=== PATIENT | female | born 1985 | race Two or more races ===

== ENCOUNTER 2020-10-15 12:23 | Emergency (ER) | payer OTHER ==
[~2020-10-15] VITALS: Ht 170.2 cm; Wt 82.6 kg
--- NOTE | 2020-10-15 12:47 | NUR ---
ED Nurse Note: pt walked in from home with dog bite on her L thumb. pt reports that her friend's dog bit her at around 1200 today, she does not know if the dog has had it's vaccines. pt has a puncture wound to L thumb near the nail bed. bleeding is controlled, pt reports putting abx ointment over affected area
[2020-10-15 12:49] VITALS: BP 95/62
[2020-10-15] MEDS ORDERED: Augmentin 875mg Tab ORAL ONE (13:00)
[2020-10-15] MEDS ORDERED: Tetanus/Diptheria/Pertussis IM ONE (13:00)
[2020-10-15] MEDS ORDERED: AUGMENTIN 875-1 EAC1 ORAL (13:27)
[2020-10-15] MEDS ORDERED: Bacitracin Oint UD TOPIC ONE (13:30)
--- NOTE | 2020-10-15 13:32 | NUR ---
Note charly in EDM - 10/15/20 at 1346 by ALLYN ER DISCHARGE NOTE: Patient is cleared to be discharged per ERMD, wound was irrigated and dressed. pt is aox4, on room air, with stable vital signs. pt was given dc and prescription instructions, pt was able to verbalize understanding, pt id band and iv site removed without complications. pt is able to ambulate with steady gait. pt took all belongings, was provided with clothes and taxi ride back home.
[2020-10-15 13:33] VITALS: BP 95/62
--- NOTE | 2020-10-16 16:40 | Emergency Room Report ---
History of Present Illness General Chief Complaint: Animal Bite Source: Patient Present Illness HPI 34-year-old female presents to ED with dog bite. States that her friend's dog bit her on the left thumb today. Denies any pain. Tetanus is out of date. States that she does not know the dog's vaccination status however states that the dog appears well and does not appear rabid. States there was bleeding in itially but none at this time. Denies any other injuries. No other aggravating relieving factors. Denies any other associated symptoms Allergies: Coded Allergies: No Known Allergies (Unverified , 10/15/20) COVID-19 Screening Contact w/high risk pt: No Experienced COVID-19 symptoms?: No COVID-19 Testing performed [facility] [place]: No Patient History Past Medical History: none Past Surgical History: none Pertinent Family History: none Social History: Denies: smoking, alcohol use, drug use Now: No Immunizations: UTD Reviewed Nursing Documentation: PMH: Agreed; PSxH: Agreed Nursing Documentation-PMH Past Medical History: No Stated History Review of Systems All Other Systems: negative except mentioned in HPI Physical Exam Vital Signs Date Time Temp Pulse Resp B/P (MAP) Pulse Ox O2 Delivery O2 Flow Rate FiO2 10/15/20 12:28 97.7 63 17 95/62 (73) 99 Room Air Sp02 EP Interpretation: reviewed, normal General Appearance: no apparent distress, alert, GCS 15, non-toxic Head: normocephalic Eyes: bilateral eye normal inspection, bilateral eye PERRL ENT: normal ENT inspection Neck: normal inspection Respiratory: normal inspection Cardiovascular #1: normal inspection Gastrointestinal: normal inspection Rectal: deferred Genitourinary: no CVA tenderness Musculoskeletal: back normal, normal range of motion, gait/station normal, other - small abrasion to L thumb adjacent to nail bed. no active bleeding. no erythema/induration Neurologic: alert, motor strength/tone normal, oriented x3, sensory intact, responsive, speech normal Psychiatric: judgement/insight normal, memory normal, mood/affect normal, no suicidal/homicidal ideation Skin: no rash Lymphatic: normal inspection Medical Decision Making Diagnostic Impression: Primary Impression: Dog bite Qualified Codes: W54.0XXA - Bitten by dog, initial encounter ER Course Hospital Course 34-year-old female presents with dog bite to left thumb Differential diagnoses include: abscess, cellulitis, ankle fracture, dislocation Clinical course Patient placed on stretcher. After initial history and physical, wound is irrigated. I ordered augmentin, Tdap. We discussed the concern for rabies. I explained that while the dog's vaccination status is unknown the dog did not appear rabid and appeared well. I also explained that the only known incidence of rabies in [facility] is through bats This is according to [facility] website Safe for discharge with close outpatient follow-up Diagnosis -dog bite Stable and discharged to home with prescription Rx augmentin. Followup with PMD. Return to ED if symptoms recur or worsen Last Vital Signs Date Time Temp Pulse Resp B/P (MAP) Pulse Ox O2 Delivery O2 Flow Rate FiO2 10/15/20 13:33 97.7 86 17 95/62 99 Room Air Status: improved Disposition: HOME, SELF-CARE Condition: Stable Scripts Amoxicillin/Potassium Clav 875-125* (AUGMENTIN 875-125 TABLET*) 1 Each Tablet 1 TAB ORAL TWICE A DAY, #14 TAB Prov: Evan Ayers MD 10/15/20 Referrals: NOT CHOSEN IPA/,REFERRING (PCP) [facility] Patient Instructions: Animal Bite, [id number] Evan Ayers MD Oct 16, 2020 16:40
== END 2020-10-15 13:33 | disposition home or self-care (01) ==
LOC: EMR 12:43
DX: S61.052A Open bite of left thumb without damage to nail, initial encounter (principal); W54.0XXA Bitten by dog, initial encounter; Y93.9 Activity, unspecified; Y92.9 Unspecified place or not applicable
CPT/HCPCS: 90471; 90715; Z7502; 99282